=== PATIENT | male | born 1970 | race Caucasian/White ===

== ENCOUNTER → 2016-08-12 | Emergency (ER) | payer BC ==
[~2016-08-12] MED LIST: ACETAMINOPHEN 500 MG TABLET (FP) PO ONE
[2016-08-12 14:49] VITALS: BP 145/88; PULSE 92; TEMP 98; BMI 24.5
--- NOTE | 2016-08-12 15:08 | PDOC ---
History of Present Illness - General History Source: Patient, Spouse Exam Limitations: No Limitations - History of Present Illness Initial Comments: 08/12/16 15:08 The patient is a 45-year-old man, accompanied by spouse with no past medical history who presents to the emergency department via walk-in for further evaluation of generalized weakness for the past 2.5 years. As per patient, he states that approximately 2.5 years ago, he started to feel generally weak. He feels as if his legs and arms are weak. He also reports experiencing intermittent throughout the past 2.5 years that occasionally occurs with his weakness. He admits that he has been evaluated by several specialists' including an Cookie Breaker, Super[employer], Neurologist, Facilities Supervisor, and has received a full workup, that according to the patient all have been normal. 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 He states that this have never happened to him in the past. at bedside also states that the patient has unintentionally lost approximately 30 lbs throughout a 2.5 year course. No other complaints. No fever, chills. No dizziness, visual changes, palpitations, neck pain, headaches No abdominal pain, nausea, vomiting, diarrhea. No urinary complaints. <Abena Daley - Last Filed: 08/12/16 16:17> - General History Source: Patient, Old Records Exam Limitations: No Limitations <Ansley Agee - Last Filed: 08/12/16 16:31> - General Chief Complaint: Weakness Stated Complaint: Lightheaded Time Seen by Provider: 08/12/16 14:58 Past History <Abena Daley - Last Filed: 08/12/16 16:17> - Past Medical History Other medical history: NONE - Surgical History Abdominal Surgery: Yes (ABD HERNIA) - Psycho/Social/Smoking Cessation Hx Anxiety: No Suicidal Ideation: No Smoking History: Never smoked Have you smoked in the past 12 months: No Information on smoking cessation initiated: No Hx Alcohol Use: No Drug/Substance Use Hx: No Substance Use Type: None <Ansley Agee - Last Filed: 08/12/16 16:31> - Past Medical History Allergies/Adverse Reactions: Allergies Allergy/AdvReac Type Severity Reaction Status Date / Time No Known Allergies Allergy Verified 08/12/16 14:42 Review of Systems - Review of Systems Able to Perform ROS?: Yes Comments:: 08/12/16 15:08 CONSTITUTIONAL: Present: Generalized weakness. Chills. Absent: fever, diaphoresis, malaise, loss of appetite HEENT: Absent: rhinorrhea, nasal congestion, throat pain, throat swelling, difficulty swallowing, mouth swelling, ear pain, eye pain, visual Changes CARDIOVASCULAR: Present: +Chest pain .+Lightheadedness. Absent: syncope, palpitations, irregular heart rate, lightheadedness, peripheral edema RESPIRATORY: Absent: cough, shortness of breath, dyspnea with exertion, orthopnea, wheezing, stridor, hemoptysis GASTROINTESTINAL:Absent: abdominal pain, abdominal distension, nausea, vomiting , diarrhea, constipation, melena, hematochezia GENITOURINARY: Absent: dysuria, frequency, urgency, hesitancy, hematuria, flank pain, genital pain MUSCULOSKELETAL: Absent: myalgia, arthralgia, joint swelling SKIN: Absent: rash, itching, pallor HEMATOLOGIC/IMMUNOLOGIC: Absent: easy bleeding, easy bruising, lymphadenopathy, frequent infections ENDOCRINE: Present: unexplained weight loss over the past 2.5 years. Absent: unexplained weight gain, heat intolerance, cold intolerance NEUROLOGIC: Present: +Left arm numbness. Absent: headache, dizziness, unsteady gait, seizure, mental status changes, bladder or bowel incontinence PSYCHIATRIC: Absent: anxiety, depression, suicidal or homicidal ideation, hallucinations <Abena Daley - Last Filed: 08/12/16 16:17> *Physical Exam - Vital Signs Last Vital Signs Temp Pulse Resp BP Pulse Ox 98.0 F 92 H 18 145/88 100 08/12/16 14:44 08/12/16 14:44 08/12/16 14:44 08/12/16 14:44 08/12/16 14:44 - Physical Exam Comments: 08/12/16 15:08 GENERAL: Well developed, well nourished. Awake and alert. No acute distress. HEENT: Normocephalic, atraumatic. PERRLA, EOMI. No conjunctival pallor. Sclera are non-icteric. Moist mucous membranes. Oropharynx is clear. NECK: Supple. Full ROM. No JVD. CARDIOVASCULAR: Regular rate and rhythm. No murmurs, rubs, or gallops. PULMONARY: No evidence of respiratory distress. Lungs clear to auscultation bilaterally. No wheezing, rales or rhonchi. ABDOMINAL: Soft. Non-tender. Non-distended. No rebound or guarding. No organomegaly. Normoactive bowel sounds. MUSCULOSKELETAL: Normal range of motion at all joints. No bony deformities or tenderness. No CVA tenderness. EXTREMITIES: No cyanosis. No clubbing. No edema. No calf tenderness. SKIN: Warm and dry. Normal capillary refill. No rashes. No jaundice. NEUROLOGICAL: Alert, awake, appropriate. Cranial nerves 2-12 intact. Normal speech. PSYCHIATRIC: Cooperative. Good eye contact. Appropriate mood and affect. <Abena Daley - Last Filed: 08/12/16 16:17> - Vital Signs Last Vital Signs Temp Pulse Resp BP Pulse Ox 98.0 F 92 H 18 145/88 100 08/12/16 14:44 08/12/16 14:44 08/12/16 14:44 08/12/16 14:44 08/12/16 14:44 <Ansley Agee - Last Filed: 08/12/16 16:31> ED Treatment Course - LABORATORY CBC & Chemistry Diagram: 08/12/16 15:20 08/12/16 15:20 - RADIOLOGY Radiograph Interpretation: 08/12/16 16:17 EXAM: RAD/CHEST PA LAT CHEST Interpreted by Dr. Denisse Freed IMPRESSION: Frontal and lateral view of the chest is provided. Lung jennings appear clear, without evidence of infiltrate or effusion. Cardiomediastinal silhouette is within normal limits. Visualized bony structures appear intact. <Abena Daley - Last Filed: 08/12/16 16:17> - LABORATORY CBC & Chemistry Diagram: 08/12/16 15:20 08/12/16 15:20 <Ansley Agee - Last Filed: 08/12/16 16:31> Medical Decision Making - Medical Decision Making 08/12/16 15:11 45-year-old male with no significant past medical history presents the emergency department with complaints of 2-1/2 year history of intermittent lightheadedness described as feeling like his can a pass out; he also had an episode of chest pain today that was left-sided lasted approximately 1 minute with no associated symptoms. Differential diagnosis includes but is not limited to: Anemia, atypical presentation of ACS, musculoskeletal pain, pneumothorax, pneumonia, dehydration, toxic/metabolic derangement. Plan: 1. EKG 2. Chest x-ray 3. Labs 4. Observe and reevaluate 08/12/16 16:28 Addendum: labs were reviewed and are noted in the EMR. EKG shows NSR at 77 bpm , normal axis, intervals and no acute ST-segment changes. CXR is negative. the patient is not feeling improved, however, he has had these symptoms for 2.5 years and has had an outpatient work-up. Will discharge home and instruct the patient to follow-up with his PCP. RTED if Sx persist, worsen or new Sx arise. <Ansley Agee - Last Filed: 08/12/16 16:31> *DC/Admit/Observation/Transfer - Attestations Scribe Attestion: 08/12/16 15:08 Documentation prepared by Abena Daley, acting as medical office receptionist assistant for Ansley Agee MD. <Abena Daley - Last Filed: 08/12/16 16:17> - Discharge Dispostion Admit: No - Attestations Physician Attestion: 08/12/16 15:13 I, Dr. Ansley Agee, attest that the scribes documentation that appears above has been prepared under my direction and personally reviewed by me in its entirety. I confirmed that the note above accurately reflects all work, treatment, procedures, and medical decision-making performed by me. <Ansley Agee - Last Filed: 08/12/16 16:31> Diagnosis at time of Disposition: Lightheadedness - Discharge Dispostion Disposition: HOME Condition at time of disposition: Stable - Referrals Referrals: David Das MD [Staff Physician] - - Patient Instructions Printed Discharge Instructions: Dizziness, Nonvertigo Additional Instructions: Please follow-up with your primary care physician tomorrow. return to the ED if your symptoms persist, worsen or new symptoms arise.
[2016-08-12 15:32] LABS: BASOPHIL 0.4 % (0-2.0); EOSINOPHIL 0.2 % (0-4.5); MCHC 33.8 g/dl (32.0-35.9); MEAN CELL VOLUME 91.6 fl (80-96); MEAN PLT VOLUME 7.3 fl (7.5-11.1); NEUTROPHILS 72.8 % (42.8-82.8); PLATELET COUNT 364 K/MM3 (134-434); RDW 14.6 % (11.9-15.9); WHITE BLOOD COUNT 8.1 K/mm3 (4.0-10.0)
[2016-08-12 15:40] LABS: URINE APPEARANCE CLEAR; URINE BILIRUBIN NEGATIVE (NEGATIVE); URINE BLOOD NEGATIVE (NEGATIVE); URINE COLOR STRAW; URINE GLUCOSE (UA) NEGATIVE (NEGATIVE); URINE KETONE TRACE (NEGATIVE); URINE LEUK ESTERASE NEGATIVE (NEGATIVE); URINE NITRITE NEGATIVE (NEGATIVE); URINE PROTEIN NEGATIVE (NEGATIVE); URINE UROBILINOGEN NEGATIVE E.U./dl (0.2-1.0)
[2016-08-12 15:52] LABS: ALBUMIN 4.1 g/dl (3.4-5.0); ANION GAP 12 (8-16); BILIRUBIN,TOTAL 0.5 mg/dL (0.2-1.0); CALCIUM 9.2 mg/dL (8.5-10.1); CO2 26 mmol/L (21-32); COCKROFT - GAULT 111.31; CREATININE 0.8 mg/dL (0.7-1.3); GLUCOSE,RANDOM 93 mg/dL (74-106); MAGNESIUM 2.1 mg/dL (1.8-2.4); PHOSPHOROUS 3.7 mg/dL (2.5-4.9); SGOT/AST 27 U/L (15-37); SGPT/ALT 39 U/L (12-78); TOT PROT 7.3 g/dl (6.4-8.2)
[2016-08-12 15:53] LABS: ALK PHOS 84 U/L (45-117); TROPONIN I < 0.02 ng/ml (0.00-0.05)
--- NOTE | 2016-08-13 13:28 | EKG ---
Test Reason : Blood Pressure : / mmHG Vent. Rate : 077 BPM Atrial Rate : 077 BPM P-R Int : 132 ms QRS Dur : 092 ms QT Int : 356 ms P-R-T Axes : 066 -27 019 degrees QTc Int : 402 ms NORMAL SINUS RHYTHM INCOMPLETE RIGHT BUNDLE BRANCH BLOCK BORDERLINE ECG NO PREVIOUS ECGS AVAILABLE Confirmed by VENKAT BOURNE MD ([id number]) on 08/13/2016 1:27:55 PM Referred By: Confirmed By:VENKAT BOURNE MD
== END | disposition home or self-care (01) ==
LOC: JER 14:40
DX: R42 Dizziness and giddiness (principal)
CPT/HCPCS: 36415; 71020-TC; 80053; 81003; 82550; 82553; 83690; 83735; 84100; 84484; 85025; 93005; 93010; 99281-25

== ENCOUNTER 2018-08-30 00:26 | Observation (INO) | payer BC | END 2018-08-30 18:33 | disposition left against medical advice (07) | LOC: JER 00:26 → J7W 02:54 ==